=== PATIENT | female | born 1985 | race Two or more races ===

== ENCOUNTER 2017-12-10 20:43 | Inpatient (IN) | payer MEDICAID, OTHER ==
[~2017-12-10] VITALS: Ht 180.3 cm; Wt 81.6 kg
[~2017-12-10 20:43] MED LIST: AMLO-511 PO; ARIP10TA8 PO; CIPR250S4 PO
[2017-12-10 21:33] LABS: BASOPHILS % (AUTO) 0.4 % (0.0-2.0); EOSINOPHILS % (AUTO) 0.1 % (1.0-6.0); HEMATOCRIT 36.6 % (36-46); HEMOGLOBIN 12.7 g/dL (12.0-16.0); LYMPHOCYTES # (AUTO) 1.5 K/uL (1.0-4.8); LYMPHOCYTES % (AUTO) 12.5 % (22.0-44.0); MEAN CORPUSCULAR HEMOGLOBIN 30.3 pg (26.0-34.0); MEAN CORPUSCULAR HGB CONC 34.6 G/dL (31.0-37.0); MEAN CORPUSCULAR VOLUME 88 fL (80-100); MONOCYTES % (AUTO) 8.8 % (2.0-9.0); NEUTROPHILS # (AUTO) 9.2 K/uL (1.8-7.7); NEUTROPHILS % (AUTO) 78.2 % (40.0-70.0); PLATELET COUNT (AUTO) 254 K/uL (150-450); RED BLOOD CELL COUNT(AUTO) 4.17 MIL/uL (4.00-5.20); RED CELL DISTRIBUTION WIDTH 13.5 % (11.5-14.5)
[2017-12-10 21:48] LABS: ANION GAP 12 mmol/L (8-16); CALCIUM, TOTAL 9.2 mg/dL (8.8-10.5); CARBON DIOXIDE 23 mmol/L (22-29); CHLORIDE 100 mmol/L (98-107); CREATININE 0.81 mg/dL (0.60-1.30); GLOMERULAR FILTR. RATE CALC > 60 mL/min (>60); GLUCOSE,RANDOM 136 mg/dL (70-110); SODIUM SERUM 135 mmol/L (136-145); UREA NITROGEN, BLOOD 16 mg/dL (7-18)
[2017-12-10 21:55] LABS: ALANINE AMINOTRANSFERASE 35 U/L (12-78); ALKALINE PHOSPHATASE 90 U/L (46-116); ASPARTATE AMINOTRANSFERASE 52 U/L (15-37); BILIRUBIN,TOTAL 2.1 mg/dL (0.1-1.0); TOTAL PROTEIN, SERUM 7.5 g/dL (6.4-8.2)
[2017-12-10] MEDS ORDERED: HALOPERIDOL 5 MG TABLET PO ONE (22:15)
[2017-12-10] MEDS ORDERED: DiphenhydrAMINE HCL 25 MG CAPSULE PO ONE (22:15)
[2017-12-10] MEDS ORDERED: LORazepam 2 MG TABLET PO ONE (22:15)
[2017-12-10] MEDS ORDERED: HALOPERIDOL LACTATE 5 MG/ML VIAL IM ONE (22:45)
[2017-12-10] MEDS ORDERED: DiphenhydrAMINE HCL 50 MG/ML VIAL IM ONE (22:45)
[2017-12-10] MEDS ORDERED: LORazepam 2 MG/ML VIAL IM ONE (22:45)
[2017-12-11] MEDS ORDERED: HALOPERIDOL 5 MG TABLET PO PRN (06:45)
[2017-12-11] MEDS ORDERED: ZOLPIDEM TARTRATE 10 MG TABLET PO PRN (06:45)
[2017-12-11] MEDS ORDERED: ARIPiprazole 10 MG TABLET PO ONE (12:45)
[2017-12-11 13:07] VITALS: BP 122/82
[2017-12-11 13:58] LABS: GLUCOMETER DEV NAME(LOC) BV3S 2; GLUCOSE,POINT OF CARE 79 MG/DL (70-110)
[2017-12-11] MEDS ORDERED: POTASSIUM CHLORIDE 20 MEQ ER TABLET PO ONE (14:30)
[2017-12-11] MEDS ORDERED: CloNIDine HCL 0.1 MG TABLET PO PRN (15:00)
[2017-12-11] MEDS ORDERED: IBUPROFEN 400 MG TABLET PO PRN (15:00)
[2017-12-11] MEDS ORDERED: LOPERAMIDE HCL 2 MG CAPSULE PO PRN (15:00)
[2017-12-11] MEDS ORDERED: ONDANSETRON HCL 4 MG TABLET PO PRN (15:00)
[2017-12-11] MEDS ORDERED: MAG HYDROX/AL HYDROX/SIMETH ES 30 ML SUSPENSION UDCUP PO PRN (15:00)
[2017-12-11] MEDS ORDERED: ACETAMINOPHEN 325 MG TABLET PO PRN (15:00)
[2017-12-11] MEDS ORDERED: DOCUSATE SODIUM 100 MG CAPSULE PO PRN (15:00)
[2017-12-11] MEDS ORDERED: ALBUTEROL SULFATE HFA 90 MCG/PUFF 8 GM INHALER IH PRN (15:00)
[2017-12-11] MEDS ORDERED: MAGNESIUM HYDROXIDE SUSPENSION 30 ML UDCUP PO PRN (15:00)
[2017-12-11] MEDS ORDERED: PETROLATUM,WHITE 71 GM JELLY TP PRN (15:00)
[2017-12-11 16:00] VITALS: BP 115/69
[2017-12-12 03:27] VITALS: BP 120/76
[2017-12-12 08:33] VITALS: BP 101/51
[2017-12-12] MEDS ORDERED: ARIPiprazole 10 MG TABLET PO SCH (09:00)
[2017-12-12] MEDS: NICOTINE 14 MG/24 HOUR PATCH TD SCH (09:49)
[2017-12-12 16:12] VITALS: BP 117/65
[2017-12-13 02:00] VITALS: BP 124/67
[2017-12-13 08:42] VITALS: BP 101/53
[2017-12-13] MEDS: AmLODIPine BESYLATE 5 MG TABLET PO SCH (08:59)
[2017-12-13] MEDS: ARIPiprazole 15 MG TABLET PO SCH (08:59)
[2017-12-13] MEDS: NICOTINE 14 MG/24 HOUR PATCH TD SCH (08:59)
[2017-12-13] MEDS ORDERED: ARIPiprazole LAUROXIL ER SUSPENSION 662 MG/2.4 ML SYRINGE IM SCH (09:00)
[2017-12-13 18:40] VITALS: BP 117/64
[2017-12-14 07:19] LABS: BASOPHILS % (AUTO) 0.2 % (0.0-2.0); HEMATOCRIT 39.1 % (36-46); HEMOGLOBIN 13.4 g/dL (12.0-16.0); LYMPHOCYTES # (AUTO) 1.5 K/uL (1.0-4.8); LYMPHOCYTES % (AUTO) 13.8 % (22.0-44.0); MEAN CORPUSCULAR HEMOGLOBIN 30.7 pg (26.0-34.0); MEAN CORPUSCULAR HGB CONC 34.3 G/dL (31.0-37.0); MEAN CORPUSCULAR VOLUME 89 fL (80-100); MONOCYTES # (AUTO) 0.8 K/uL (0.1-1.0); MONOCYTES % (AUTO) 7.4 % (2.0-9.0); NEUTROPHILS # (AUTO) 8.4 K/uL (1.8-7.7); NEUTROPHILS % (AUTO) 77.6 % (40.0-70.0); PLATELET COUNT (AUTO) 263 K/uL (150-450); RED BLOOD CELL COUNT(AUTO) 4.37 MIL/uL (4.00-5.20); RED CELL DISTRIBUTION WIDTH 14.1 % (11.5-14.5)
[2017-12-14 07:39] LABS: CHOL/HDL RATIO 3.5 (3.9-5.7); POTASSIUM 4.2 mmol/L (3.5-5.1); THYROID STIMULATING HORMONE 0.17 uIU/mL (0.36-3.74)
[2017-12-14 07:45] LABS: HEMOGLOBIN A1C 5.1 % (4.5-6.2)
[2017-12-14] MEDS: ARIPiprazole 15 MG TABLET PO SCH (08:22)
[2017-12-14] MEDS: AmLODIPine BESYLATE 5 MG TABLET PO SCH (08:22)
[2017-12-14] MEDS: NICOTINE 14 MG/24 HOUR PATCH TD SCH (08:22)
[2017-12-14 08:24] VITALS: BP 130/58
[2017-12-14] MEDS ORDERED: ARIPiprazole LAUROXIL ER SUSPENSION 662 MG/2.4 ML SYRINGE IM SCH (09:00)
[2017-12-14 17:52] VITALS: BP 126/69
[2017-12-15] MEDS: LORazepam 2 MG TABLET PO PRN ×2 (02:53→17:08)
[2017-12-15 05:34] VITALS: BP 126/70
[2017-12-15 08:44] VITALS: BP 116/58
[2017-12-15] MEDS: NICOTINE 14 MG/24 HOUR PATCH TD SCH ×2 (09:00→13:13)
[2017-12-15] MEDS: ARIPiprazole 15 MG TABLET PO SCH (09:45)
[2017-12-15] MEDS: AmLODIPine BESYLATE 5 MG TABLET PO SCH (09:45)
[2017-12-15 16:12] VITALS: BP 119/68
[2017-12-16 06:40] VITALS: BP 110/62
[2017-12-16 08:32] VITALS: BP 126/67
[2017-12-16] MEDS: AmLODIPine BESYLATE 5 MG TABLET PO SCH (08:51)
[2017-12-16] MEDS: ARIPiprazole 15 MG TABLET PO SCH (08:51)
[2017-12-16] MEDS ORDERED: ARIP662S IM (12:14)
== END 2017-12-16 15:00 | disposition home or self-care (01) | DRG 751 ==
LOC: EMS 20:44 → B3A 12-11 11:58
PROVIDERS: ADMIT Psychiatry & Neurology Psychiatry; ATTEND Psychiatry & Neurology Psychiatry
DX: F28 Other psychotic disorder not due to a substance or known physiological condition (principal); Z78.1 Physical restraint status; I10 Essential (primary) hypertension; F15.20 Other stimulant dependence, uncomplicated; E11.9 Type 2 diabetes mellitus without complications; D72.829 Elevated white blood cell count, unspecified; E87.6 Hypokalemia; Z71.51 Drug abuse counseling and surveillance of drug abuser; F41.9 Anxiety disorder, unspecified; F12.90 Cannabis use, unspecified, uncomplicated; R74.0 Nonspecific elevation of levels of transaminase and lactic acid dehydrogenase [LDH]; F17.210 Nicotine dependence, cigarettes, uncomplicated; Z91.19 Patient's noncompliance with other medical treatment and regimen; Z59.0 Homelessness; Z79.899 Other long term (current) drug therapy; F19.20 Other psychoactive substance dependence, uncomplicated; Z87.440 Personal history of urinary (tract) infections
CPT/HCPCS: 83036; 84132; 84443; 87081; 96372; 99285; G0480; J1200; J1630; J2060

== ENCOUNTER 2018-07-15 17:13 | Emergency (ER) | payer MEDICAID, OTHER ==
[~2018-07-15] VITALS: Ht 180.3 cm; Wt 86.4 kg
[~2018-07-15 17:13] MED LIST changes: -AMLO-511 PO; -ARIP10TA8 PO; +ARIP15TA2 PO; -CIPR250S4 PO
[2018-07-15 19:07] LABS: HEMATOCRIT 35.8 % (36-46); MEAN CORPUSCULAR HEMOGLOBIN 29.2 pg (26.0-34.0); MEAN CORPUSCULAR HGB CONC 33.4 G/dL (31.0-37.0); MEAN CORPUSCULAR VOLUME 88 fL (80-100); PLATELET COUNT (AUTO) 282 K/uL (150-450); RED CELL DISTRIBUTION WIDTH 14.4 % (11.5-14.5)
[2018-07-15 19:35] LABS: ANION GAP 9 mmol/L (8-16); CALCIUM, TOTAL 8.9 mg/dL (8.8-10.5); CARBON DIOXIDE 26 mmol/L (22-29); CHLORIDE 99 mmol/L (98-107); CREATININE 0.78 mg/dL (0.60-1.30); GLOMERULAR FILTR. RATE CALC > 60 mL/min (>60); GLUCOSE,RANDOM 114 mg/dL (70-110); POTASSIUM 3.6 mmol/L (3.5-5.1); SODIUM SERUM 134 mmol/L (136-145); UREA NITROGEN, BLOOD 11 mg/dL (7-18)
[2018-07-15 19:42] LABS: ALANINE AMINOTRANSFERASE 33 U/L (12-78); ALBUMIN 3.6 g/dL (3.4-5.0); ALKALINE PHOSPHATASE 103 U/L (46-116); ASPARTATE AMINOTRANSFERASE 46 U/L (15-37); BILIRUBIN,TOTAL 2.8 mg/dL (0.1-1.0); TOTAL PROTEIN, SERUM 7.7 g/dL (6.4-8.2)
[2018-07-15] MEDS ORDERED: SODIUM CHLORIDE 0.9% 1,000 ML IV ONE (20:15)
[2018-07-15 20:23] LABS: BAND NEUTROPHILS % (MANUAL) 3 % (0-5); LYMPHOCYTES % (MANUAL) 9 % (22-44); MONOCYTES % (MANUAL) 4 % (2-9); SEGMENTED NEUTROPHILS % 84 % (40-70)
[2018-07-15 20:28] LABS: HCG,QUANTITATIVE < 1 mIU/mL (0-6)
[2018-07-16 01:21] LABS: APPEARANCE,URINE TURBID (CLEAR); BILIRUBIN,URINE NEGATIVE (NEGATIVE); GLUCOSE, URINE (UA) NEGATIVE (NEGATIVE); KETONES,URINE 15 mg/dL (NEGATIVE); LEUKOCYTE ESTERASE ,URINE NEGATIVE (NEGATIVE); NITRATE,URINE NEGATIVE (NEGATIVE); OCCULT BLOOD,URINE NEGATIVE (NEGATIVE); PROTEIN,URINE NEGATIVE (NEGATIVE)
[2018-07-16 01:25] LABS: AMPHET/METH SCREEN,URINE POSITIVE (NEGATIVE); BARBITURATE SCREEN, URINE NEGATIVE (NEGATIVE); BENZODIAZEPINES SCREEN,URINE NEGATIVE (NEGATIVE); CANNABINOID SCREEN,URINE POSITIVE (NEGATIVE); COCAINE SCREEN,URINE NEGATIVE (NEGATIVE); METHADONE SCREEN, URINE NEGATIVE (NEGATIVE); OPIATE SCREEN,URINE NEGATIVE (NEGATIVE)
[2018-07-16 01:26] LABS: PHENCYCLIDINE SCREEN,URINE NEGATIVE (NEGATIVE)
[2018-07-16] MEDS ORDERED: KETOROLAC TROMETHAMINE 60 MG/2 ML VIAL IM ONE (05:00)
[2018-07-16] MEDS ORDERED: KETOROLAC TROMETHAMINE 30 MG/ML VIAL IVP ONE (05:30)
[2018-07-16] MEDS ORDERED: CeFAZolin 1 GM/DEXTROSE 50 ML IV ONE (05:30)
[2018-07-16 06:10] VITALS: BP 113/56
== END 2018-07-16 06:46 | disposition home or self-care (01) ==
LOC: EMS 17:14
DX: S52.002A Unspecified fracture of upper end of left ulna, initial encounter for closed fracture (principal); F29 Unspecified psychosis not due to a substance or known physiological condition; L03.114 Cellulitis of left upper limb; F31.9 Bipolar disorder, unspecified; F20.9 Schizophrenia, unspecified; E11.9 Type 2 diabetes mellitus without complications; F15.90 Other stimulant use, unspecified, uncomplicated; F17.210 Nicotine dependence, cigarettes, uncomplicated; Z79.899 Other long term (current) drug therapy; X58.XXXA Exposure to other specified factors, initial encounter; Y93.89 Activity, other specified; Y92.89 Other specified places as the place of occurrence of the external cause; Y99.8 Other external cause status
CPT/HCPCS: 29105; 36415; 73080; 80053; 80307; 81003; 84702; 85025; 96365; 96375; 99285; G0480; J0690; J1885; J7030

== ENCOUNTER 2018-10-06 11:06 | Inpatient (IN) | payer MEDICAID, OTHER ==
[~2018-10-06] VITALS: Ht 177.8 cm; Wt 186.2 kg
[2018-10-06 12:03] LABS: BASOPHILS % (AUTO) 0.4 % (0.0-2.0); EOSINOPHILS % (AUTO) 0.4 % (1.0-6.0); HEMATOCRIT 36.7 % (36-46); HEMOGLOBIN 11.9 g/dL (12.0-16.0); LYMPHOCYTES # (AUTO) 1.7 K/uL (1.0-4.8); LYMPHOCYTES % (AUTO) 19.2 % (22.0-44.0); MEAN CORPUSCULAR HEMOGLOBIN 27.9 pg (26.0-34.0); MEAN CORPUSCULAR HGB CONC 32.5 G/dL (31.0-37.0); MEAN CORPUSCULAR VOLUME 86 fL (80-100); MONOCYTES # (AUTO) 0.8 K/uL (0.1-1.0); MONOCYTES % (AUTO) 9.3 % (2.0-9.0); NEUTROPHILS # (AUTO) 6.1 K/uL (1.8-7.7); NEUTROPHILS % (AUTO) 70.7 % (40.0-70.0); PLATELET COUNT (AUTO) 304 K/uL (150-450); RED BLOOD CELL COUNT(AUTO) 4.29 MIL/uL (4.00-5.20); RED CELL DISTRIBUTION WIDTH 15.8 % (11.5-14.5)
[2018-10-06 12:11] LABS: AMPHET/METH SCREEN,URINE POSITIVE (NEGATIVE); BARBITURATE SCREEN, URINE NEGATIVE (NEGATIVE); BENZODIAZEPINES SCREEN,URINE NEGATIVE (NEGATIVE); CANNABINOID SCREEN,URINE POSITIVE (NEGATIVE); COCAINE SCREEN,URINE NEGATIVE (NEGATIVE); METHADONE SCREEN, URINE NEGATIVE (NEGATIVE); OPIATE SCREEN,URINE NEGATIVE (NEGATIVE)
[2018-10-06 12:13] LABS: ANION GAP 9 mmol/L (8-16); CARBON DIOXIDE 26 mmol/L (22-29); CHLORIDE 101 mmol/L (98-107); CREATININE 0.66 mg/dL (0.60-1.30); GLOMERULAR FILTR. RATE CALC > 60 mL/min (>60); GLUCOSE,RANDOM 112 mg/dL (70-110); POTASSIUM 3.4 mmol/L (3.5-5.1); SODIUM SERUM 136 mmol/L (136-145); UREA NITROGEN, BLOOD 11 mg/dL (7-18)
[2018-10-06 12:16] LABS: PHENCYCLIDINE SCREEN,URINE NEGATIVE (NEGATIVE)
[2018-10-06 12:25] LABS: ALANINE AMINOTRANSFERASE 24 U/L (12-78); ALBUMIN 3.9 g/dL (3.4-5.0); ALKALINE PHOSPHATASE 97 U/L (46-116); ASPARTATE AMINOTRANSFERASE 31 U/L (15-37); BILIRUBIN,TOTAL 1.1 mg/dL (0.1-1.0); HCG,QUANTITATIVE < 1 mIU/mL (0-6); TOTAL PROTEIN, SERUM 7.9 g/dL (6.4-8.2)
[2018-10-06] MEDS ORDERED: LORazepam 2 MG TABLET PO ONE (13:00)
[2018-10-06] MEDS ORDERED: OLANZapine 5 MG TABLET PO ONE (13:00)
[2018-10-06] MEDS ORDERED: POTASSIUM CHLORIDE 20 MEQ ER TABLET PO ONE (13:15)
[2018-10-06] MEDS ORDERED: SULFAMETHOX/TRIMETH DS 800-160 MG/TABLET PO ONE (14:00)
[2018-10-06] MEDS ORDERED: CEPHALEXIN MONOHYDRATE 500 MG CAPSULE PO ONE (14:00)
[2018-10-06] MEDS ORDERED: HALOPERIDOL LACTATE 5 MG/ML VIAL IM ONE (14:45)
[2018-10-06] MEDS ORDERED: DiphenhydrAMINE HCL 50 MG/ML VIAL IM ONE (14:45)
[2018-10-06 19:15] LABS: GLUCOSE,POINT OF CARE 85 MG/DL (70-110)
[2018-10-06] MEDS ORDERED: CloNIDine HCL 0.1 MG TABLET PO PRN (19:45)
[2018-10-06] MEDS ORDERED: DOCUSATE SODIUM 100 MG CAPSULE PO PRN (19:45)
[2018-10-06] MEDS ORDERED: ACETAMINOPHEN 325 MG TABLET PO PRN (19:45)
[2018-10-06] MEDS ORDERED: MAGNESIUM HYDROXIDE SUSPENSION 30 ML UDCUP PO PRN (19:45)
[2018-10-06] MEDS ORDERED: ONDANSETRON HCL 4 MG TABLET PO PRN (19:45)
[2018-10-06] MEDS ORDERED: NICOTINE 14 MG/24 HOUR PATCH TD PRN (19:45)
[2018-10-06] MEDS ORDERED: LOPERAMIDE HCL 2 MG CAPSULE PO PRN (19:45)
[2018-10-06] MEDS ORDERED: ALBUTEROL SULFATE HFA 90 MCG/PUFF 8 GM INHALER IH PRN (19:45)
[2018-10-06] MEDS ORDERED: MAG HYDROX/AL HYDROX/SIMETH ES 30 ML SUSPENSION UDCUP PO PRN (19:45)
[2018-10-06] MEDS ORDERED: GuaiFENesin/D-METHORPHAN [SUGAR-FREE] 200-20MG/10 ML SYRUP UDCUP PO PRN (19:45)
[2018-10-06] MEDS ORDERED: PETROLATUM,WHITE 28 GM JELLY TP PRN (19:45)
[2018-10-06] MEDS ORDERED: PNEUMOCOCCAL VACCINE POLYVALENT 0.5 ML VIAL [PPSV23] IM ONE (20:00)
[2018-10-07 06:30] LABS: GLUCOMETER DEV NAME(LOC) 3E.C; GLUCOSE,POINT OF CARE 88 MG/DL (70-110)
[2018-10-07 06:35] LABS: BASOPHILS % (AUTO) 0.4 % (0.0-2.0); EOSINOPHILS % (AUTO) 2.3 % (1.0-6.0); HEMATOCRIT 36.4 % (36-46); HEMOGLOBIN 11.9 g/dL (12.0-16.0); LYMPHOCYTES # (AUTO) 1.7 K/uL (1.0-4.8); LYMPHOCYTES % (AUTO) 31.2 % (22.0-44.0); MEAN CORPUSCULAR HGB CONC 32.8 G/dL (31.0-37.0); MEAN CORPUSCULAR VOLUME 85 fL (80-100); MONOCYTES # (AUTO) 0.6 K/uL (0.1-1.0); NEUTROPHILS # (AUTO) 3.1 K/uL (1.8-7.7); NEUTROPHILS % (AUTO) 55.1 % (40.0-70.0); PLATELET COUNT (AUTO) 287 K/uL (150-450); RED BLOOD CELL COUNT(AUTO) 4.26 MIL/uL (4.00-5.20); RED CELL DISTRIBUTION WIDTH 16.1 % (11.5-14.5)
[2018-10-07 07:14] LABS: ALANINE AMINOTRANSFERASE 22 U/L (12-78); ALBUMIN 3.3 g/dL (3.4-5.0); ALKALINE PHOSPHATASE 95 U/L (46-116); ANION GAP 10 mmol/L (8-16); ASPARTATE AMINOTRANSFERASE 30 U/L (15-37); BILIRUBIN,TOTAL 1.7 mg/dL (0.1-1.0); CALCIUM, TOTAL 8.8 mg/dL (8.8-10.5); CARBON DIOXIDE 26 mmol/L (22-29); CHLORIDE 106 mmol/L (98-107); CHOLESTEROL 151 mg/dL (131-200); CREATININE 0.61 mg/dL (0.60-1.30); GLOMERULAR FILTR. RATE CALC > 60 mL/min (>60); GLUCOSE,RANDOM 96 mg/dL (70-110); HDL CHOLESTEROL 75 mg/dL (40-60); LDL CHOL (CALC.) 69 mg/dL (0-130); POTASSIUM 4.3 mmol/L (3.5-5.1); SODIUM SERUM 142 mmol/L (136-145); THYROID STIMULATING HORMONE 0.68 uIU/mL (0.36-3.74); TOTAL PROTEIN, SERUM 6.8 g/dL (6.4-8.2); TRIGLYCERIDES 37 mg/dL (15-150); UREA NITROGEN, BLOOD 10 mg/dL (7-18)
[2018-10-07 08:00] VITALS: BP 115/65
[2018-10-07] MEDS: OLANZapine 5 MG RAPDIS TABLET PO PRN (09:14)
[2018-10-07] MEDS: LORazepam 2 MG TABLET PO PRN (09:14)
[2018-10-07] MEDS: CEPHALEXIN MONOHYDRATE 500 MG CAPSULE PO SCH ×2 (09:15→17:32)
[2018-10-07] MEDS: SULFAMETHOX/TRIMETH DS 800-160 MG/TABLET PO SCH ×2 (09:15→17:32)
[2018-10-07 11:50] LABS: GLUCOMETER DEV NAME(LOC) 3E.C; GLUCOSE,POINT OF CARE 90 MG/DL (70-110)
[2018-10-07] MEDS: IBUPROFEN 400 MG TABLET PO PRN (15:11)
[2018-10-07] MEDS: MULTIVITAMINS WITH MINERALS, THERAPEUTIC TABLET PO SCH (17:32)
[2018-10-07] MEDS: ASCORBIC ACID 500 MG TABLET PO SCH (17:32)
[2018-10-07] MEDS: QUEtiapine FUMARATE 100 MG TABLET PO SCH (20:58)
[2018-10-07 21:09] LABS: GLUCOMETER DEV NAME(LOC) 3E.C; GLUCOSE,POINT OF CARE 74 MG/DL (70-110)
[2018-10-08 06:44] LABS: GLUCOMETER DEV NAME(LOC) 3E.C; GLUCOSE,POINT OF CARE 92 MG/DL (70-110)
[2018-10-08 09:11] VITALS: BP 108/60
[2018-10-08] MEDS: CEPHALEXIN MONOHYDRATE 500 MG CAPSULE PO SCH ×2 (09:42→16:47)
[2018-10-08] MEDS: ASCORBIC ACID 500 MG TABLET PO SCH (09:42)
[2018-10-08] MEDS: MULTIVITAMINS WITH MINERALS, THERAPEUTIC TABLET PO SCH (09:42)
[2018-10-08] MEDS: SULFAMETHOX/TRIMETH DS 800-160 MG/TABLET PO SCH ×2 (09:42→16:48)
[2018-10-08 11:25] LABS: GLUCOMETER DEV NAME(LOC) 3E.C; GLUCOSE,POINT OF CARE 88 MG/DL (70-110)
[2018-10-08 13:08] VITALS: BP 108/60
[2018-10-08] MEDS: IBUPROFEN 400 MG TABLET PO PRN (13:08)
[2018-10-08] MEDS: OLANZapine 5 MG RAPDIS TABLET PO PRN (13:08)
[2018-10-08] MEDS: LORazepam 2 MG TABLET PO PRN (13:08)
[2018-10-08 17:24] LABS: GLUCOMETER DEV NAME(LOC) 3E.C; GLUCOSE,POINT OF CARE 97 MG/DL (70-110)
[2018-10-08 19:40] VITALS: BP 111/62
[2018-10-08] MEDS: QUEtiapine FUMARATE 100 MG TABLET PO SCH (20:44)
[2018-10-08 20:59] LABS: GLUCOMETER DEV NAME(LOC) 3E.C; GLUCOSE,POINT OF CARE 133 MG/DL (70-110)
[2018-10-09] MEDS: LORazepam 2 MG TABLET PO PRN ×2 (01:56→12:01)
[2018-10-09] MEDS: ZOLPIDEM TARTRATE 10 MG TABLET PO PRN (01:57)
[2018-10-09 06:19] LABS: GLUCOMETER DEV NAME(LOC) 3E.C; GLUCOSE,POINT OF CARE 87 MG/DL (70-110)
[2018-10-09 08:36] VITALS: BP 108/60
[2018-10-09] MEDS: SULFAMETHOX/TRIMETH DS 800-160 MG/TABLET PO SCH ×2 (08:44→16:36)
[2018-10-09] MEDS: CEPHALEXIN MONOHYDRATE 500 MG CAPSULE PO SCH ×2 (08:44→16:36)
[2018-10-09] MEDS: ASCORBIC ACID 500 MG TABLET PO SCH (08:44)
[2018-10-09] MEDS: MULTIVITAMINS WITH MINERALS, THERAPEUTIC TABLET PO SCH (08:44)
[2018-10-09] MEDS: OLANZapine 5 MG RAPDIS TABLET PO PRN (12:01)
[2018-10-09 17:03] VITALS: BP 122/65
[2018-10-09 17:09] LABS: GLUCOMETER DEV NAME(LOC) 3E.C; GLUCOSE,POINT OF CARE 96 MG/DL (70-110)
[2018-10-09] MEDS: QUEtiapine FUMARATE 200 MG TABLET PO SCH (20:35)
[2018-10-09 20:49] LABS: GLUCOMETER DEV NAME(LOC) 3E.C; GLUCOSE,POINT OF CARE 99 MG/DL (70-110)
[2018-10-10] MEDS: MULTIVITAMINS WITH MINERALS, THERAPEUTIC TABLET PO SCH (08:21)
[2018-10-10] MEDS: SULFAMETHOX/TRIMETH DS 800-160 MG/TABLET PO SCH ×2 (08:21→16:23)
[2018-10-10] MEDS: CEPHALEXIN MONOHYDRATE 500 MG CAPSULE PO SCH ×2 (08:21→16:23)
[2018-10-10] MEDS: ASCORBIC ACID 500 MG TABLET PO SCH (08:21)
[2018-10-10] MEDS: LORazepam 2 MG TABLET PO PRN ×2 (08:21→16:43)
[2018-10-10 09:13] VITALS: BP 138/73
[2018-10-10 11:30] LABS: GLUCOMETER DEV NAME(LOC) 3E.C; GLUCOSE,POINT OF CARE 118 MG/DL (70-110)
[2018-10-10 16:54] LABS: GLUCOMETER DEV NAME(LOC) 3E.C; GLUCOSE,POINT OF CARE 70 MG/DL (70-110)
[2018-10-10 18:04] VITALS: BP 126/70
[2018-10-10] MEDS: QUEtiapine FUMARATE 200 MG TABLET PO SCH (20:08)
[2018-10-10 21:35] LABS: GLUCOMETER DEV NAME(LOC) 3E.C; GLUCOSE,POINT OF CARE 98 MG/DL (70-110)
[2018-10-11 06:24] LABS: GLUCOMETER DEV NAME(LOC) 3E.C; GLUCOSE,POINT OF CARE 99 MG/DL (70-110)
[2018-10-11] MEDS: CEPHALEXIN MONOHYDRATE 500 MG CAPSULE PO SCH ×2 (08:17→16:10)
[2018-10-11] MEDS: ASCORBIC ACID 500 MG TABLET PO SCH (08:17)
[2018-10-11] MEDS: LORazepam 2 MG TABLET PO PRN ×2 (08:17→18:22)
[2018-10-11] MEDS: MULTIVITAMINS WITH MINERALS, THERAPEUTIC TABLET PO SCH (08:17)
[2018-10-11] MEDS: SULFAMETHOX/TRIMETH DS 800-160 MG/TABLET PO SCH ×2 (08:17→16:10)
[2018-10-11] MEDS: CHLORHEXIDINE GLUCONATE 4% 118 ML TOPICAL LIQUID TP SCH (08:18)
[2018-10-11 09:03] VITALS: BP 99/46
[2018-10-11 11:09] LABS: GLUCOMETER DEV NAME(LOC) 3E.C; GLUCOSE,POINT OF CARE 82 MG/DL (70-110)
[2018-10-11 18:57] VITALS: BP 112/54
[2018-10-11] MEDS: QUEtiapine FUMARATE 200 MG TABLET PO SCH (20:10)
[2018-10-11 20:29] LABS: GLUCOMETER DEV NAME(LOC) 3E.C; GLUCOSE,POINT OF CARE 114 MG/DL (70-110)
[2018-10-12 05:49] LABS: GLUCOMETER DEV NAME(LOC) 3E.C; GLUCOSE,POINT OF CARE 93 MG/DL (70-110)
[2018-10-12 08:47] VITALS: BP 121/94
[2018-10-12] MEDS: ASCORBIC ACID 500 MG TABLET PO SCH (08:59)
[2018-10-12] MEDS: MULTIVITAMINS WITH MINERALS, THERAPEUTIC TABLET PO SCH (08:59)
[2018-10-12] MEDS: SULFAMETHOX/TRIMETH DS 800-160 MG/TABLET PO SCH ×2 (08:59→16:32)
[2018-10-12] MEDS: CEPHALEXIN MONOHYDRATE 500 MG CAPSULE PO SCH ×2 (08:59→16:32)
[2018-10-12] MEDS: CHLORHEXIDINE GLUCONATE 4% 118 ML TOPICAL LIQUID TP SCH (09:00)
[2018-10-12] MEDS: LORazepam 2 MG TABLET PO PRN ×2 (09:00→14:11)
[2018-10-12] MEDS: OLANZapine 5 MG RAPDIS TABLET PO PRN (16:33)
[2018-10-12 16:45] LABS: GLUCOMETER DEV NAME(LOC) 3E.C; GLUCOSE,POINT OF CARE 83 MG/DL (70-110)
[2018-10-12] MEDS: QUEtiapine FUMARATE 200 MG TABLET PO SCH (20:24)
[2018-10-12] MEDS: ZOLPIDEM TARTRATE 10 MG TABLET PO PRN (20:24)
[2018-10-12 21:25] VITALS: BP 114/92
[2018-10-13 06:35] LABS: GLUCOMETER DEV NAME(LOC) 3E.C; GLUCOSE,POINT OF CARE 95 MG/DL (70-110)
[2018-10-13] MEDS: CEPHALEXIN MONOHYDRATE 500 MG CAPSULE PO SCH ×2 (09:43→16:20)
[2018-10-13] MEDS: OLANZapine 5 MG RAPDIS TABLET PO PRN (09:43)
[2018-10-13] MEDS: SULFAMETHOX/TRIMETH DS 800-160 MG/TABLET PO SCH ×2 (09:43→16:19)
[2018-10-13] MEDS: ASCORBIC ACID 500 MG TABLET PO SCH (09:43)
[2018-10-13] MEDS: MULTIVITAMINS WITH MINERALS, THERAPEUTIC TABLET PO SCH (09:43)
[2018-10-13] MEDS: CHLORHEXIDINE GLUCONATE 4% 118 ML TOPICAL LIQUID TP SCH (09:44)
[2018-10-13 10:03] VITALS: BP 113/76
[2018-10-13 11:55] LABS: GLUCOMETER DEV NAME(LOC) 3E.C; GLUCOSE,POINT OF CARE 90 MG/DL (70-110)
[2018-10-13] MEDS ORDERED: ASCO500 PO (14:15)
[2018-10-13] MEDS ORDERED: CEPH500 PO (14:16)
[2018-10-13] MEDS ORDERED: CHLO240L TP (14:20)
[2018-10-13] MEDS ORDERED: MULT-1239 PO (14:20)
[2018-10-13] MEDS ORDERED: SULF1TAB42 PO (14:21)
[2018-10-13] MEDS ORDERED: QUET200T PO (14:32)
== END 2018-10-13 16:30 | disposition home or self-care (01) | DRG 750 ==
LOC: EMS 11:07 → 3EC 18:05
DX: F25.0 Schizoaffective disorder, bipolar type (principal); E43 Unspecified severe protein-calorie malnutrition; F10.231 Alcohol dependence with withdrawal delirium; E83.51 Hypocalcemia; L03.115 Cellulitis of right lower limb; F15.20 Other stimulant dependence, uncomplicated; E11.9 Type 2 diabetes mellitus without complications; E87.6 Hypokalemia; D64.9 Anemia, unspecified; F12.10 Cannabis abuse, uncomplicated; F14.10 Cocaine abuse, uncomplicated; I10 Essential (primary) hypertension; Z91.5 Personal history of self-harm; F17.210 Nicotine dependence, cigarettes, uncomplicated
CPT/HCPCS: 83036; 84443; 87081; 96372; G0480; J1200; J1630

== ENCOUNTER 2020-07-19 11:34 | Inpatient (IN) | payer MEDICAID, OTHER ==
[~2020-07-19] VITALS: Ht 180.3 cm; Wt 106.1 kg
[~2020-07-19 11:34] MED LIST changes: -ARIP15TA2 PO; +ASCO500 PO; +CEPH500C3 PO; +CHLO240L TP; +MULT-1239 PO; +QUET200T PO; +SULF1TAB42 PO
[2020-07-19] MEDS ORDERED: LORazepam 2 MG/ML VIAL IM ONE ×2 (11:45→18:30)
[2020-07-19] MEDS ORDERED: HALOPERIDOL LACTATE 5 MG/ML VIAL ONE (11:45)
[2020-07-19] MEDS ORDERED: DiphenhydrAMINE HCL 50 MG/ML VIAL IM ONE (11:45)
[2020-07-19] MEDS ORDERED: LORazepam 2 MG/ML VIAL ONE (11:45)
[2020-07-19] MEDS ORDERED: HALOPERIDOL LACTATE 5 MG/ML VIAL IM ONE (11:45)
[2020-07-19] MEDS ORDERED: DiphenhydrAMINE HCL 50 MG/ML VIAL ONE (11:45)
[2020-07-19 12:05] LABS: BASOPHILS % (AUTO) 0.2 % (0.0-2.0); EOSINOPHILS % (AUTO) 0.1 % (1.0-6.0); HEMATOCRIT 38.9 % (36-46); HEMOGLOBIN 12.6 g/dL (12.0-16.0); LYMPHOCYTES # (AUTO) 0.9 K/uL (1.0-4.8); MEAN CORPUSCULAR HEMOGLOBIN 28.6 pg (26.0-34.0); MEAN CORPUSCULAR HGB CONC 32.3 G/dL (31.0-37.0); MEAN CORPUSCULAR VOLUME 88 fL (80-100); MONOCYTES # (AUTO) 0.9 K/uL (0.1-1.0); MONOCYTES % (AUTO) 5.2 % (2.0-9.0); NEUTROPHILS # (AUTO) 15.5 K/uL (1.8-7.7); PLATELET COUNT (AUTO) 344 K/uL (150-450); RED CELL DISTRIBUTION WIDTH 15.7 % (11.5-14.5)
[2020-07-19 12:30] LABS: NEUTROPHILS % (AUTO) 89.5 % (40.0-70.0)
[2020-07-19] MEDS ORDERED: SODIUM CHLORIDE 0.9% 2,000 ML IV ONE (12:30)
[2020-07-19 12:36] LABS: ANION GAP 19 mmol/L (8-16); CALCIUM, TOTAL 9.2 mg/dL (8.8-10.5); CARBON DIOXIDE 21 mmol/L (22-29); CHLORIDE 100 mmol/L (98-107); CREATININE 1.29 mg/dL (0.60-1.30); GLOMERULAR FILTR. RATE CALC 48 mL/min (>60); GLUCOSE,RANDOM 214 mg/dL (70-110); POTASSIUM 3.5 mmol/L (3.5-5.1); SODIUM SERUM 140 mmol/L (136-145); UREA NITROGEN, BLOOD 11 mg/dL (7-18)
[2020-07-19 12:42] LABS: ALANINE AMINOTRANSFERASE 19 U/L (12-78); ALBUMIN 4.7 g/dL (3.4-5.0); ALKALINE PHOSPHATASE 87 U/L (46-116); ASPARTATE AMINOTRANSFERASE 16 U/L (15-37); TOTAL PROTEIN, SERUM 8.9 g/dL (6.4-8.2)
[2020-07-19] MEDS ORDERED: LORazepam 2 MG/ML VIAL IVP ONE ×2 (12:45→18:30)
[2020-07-19 14:16] LABS: APPEARANCE,URINE CLOUDY (CLEAR); BILIRUBIN,URINE NEGATIVE (NEGATIVE); GLUCOSE, URINE (UA) 100 mg/dL (NEGATIVE); KETONES,URINE 15 mg/dL (NEGATIVE); LEUKOCYTE ESTERASE ,URINE NEGATIVE (NEGATIVE); NITRATE,URINE NEGATIVE (NEGATIVE); OCCULT BLOOD,URINE TRACE (NEGATIVE); PROTEIN,URINE SEE CONFIRM (NEGATIVE); UROBILINOGEN,URINE 0.2 mg/dL (<=1.0)
[2020-07-19 14:21] LABS: AMPHET/METH SCREEN,URINE POSITIVE (NEGATIVE); BARBITURATE SCREEN, URINE NEGATIVE (NEGATIVE); BENZODIAZEPINES SCREEN,URINE NEGATIVE (NEGATIVE); CANNABINOID SCREEN,URINE POSITIVE (NEGATIVE); COCAINE SCREEN,URINE NEGATIVE (NEGATIVE); METHADONE SCREEN, URINE NEGATIVE (NEGATIVE); OPIATE SCREEN,URINE NEGATIVE (NEGATIVE)
[2020-07-19 14:29] LABS: PHENCYCLIDINE SCREEN,URINE NEGATIVE (NEGATIVE)
[2020-07-19 14:32] LABS: SULFOSALICYLIC ACID,URINE 2+ (Negative)
[2020-07-19 14:33] LABS: BACTERIA,URINE Rare /HPF (None Seen)
[2020-07-19 14:34] LABS: SQUAMOUS EPITHELIAL CELL,UR Few /LPF (None Seen)
[2020-07-19] MEDS ORDERED: QUEtiapine FUMARATE 100 MG TABLET PO ONE (18:00)
[2020-07-19] MEDS ORDERED: SODIUM CHLORIDE 0.9% 1,000 ML IV ONE (18:30)
[2020-07-19] MEDS ORDERED: ZOLPIDEM TARTRATE 10 MG TABLET PO PRN (18:45)
[2020-07-19] MEDS ORDERED: HALOPERIDOL 5 MG TABLET PO PRN (18:45)
[2020-07-19 19:48] LABS: COVID AG,FIA SOURCE NASOPHARYNGEAL
[2020-07-19] MEDS: QUEtiapine FUMARATE 300 MG TABLET PO SCH (21:00)
[2020-07-20 00:57] VITALS: BP 148/93
[2020-07-20 01:25] VITALS: BP 127/85
[2020-07-20] MEDS ORDERED: INFLUENZA VIRUS VACCINE QVS 2020-21 (6MO+)/PF 60 MCG/0.5 ML SYRINGE IM ONE (02:30)
[2020-07-20] MEDS ORDERED: PNEUMOCOCCAL VACCINE POLYVALENT 0.5 ML VIAL [PPSV23] IM ONE (02:30)
[2020-07-20] MEDS ORDERED: MAG HYDROX/AL HYDROX/SIMETH ES 30 ML SUSPENSION UDCUP PO PRN (06:15)
[2020-07-20] MEDS ORDERED: BENZOCAINE/MENTHOL LOZENGE PO PRN (06:15)
[2020-07-20] MEDS ORDERED: PETROLATUM,WHITE 28 GM JELLY TP PRN (06:15)
[2020-07-20] MEDS ORDERED: ONDANSETRON HCL 4 MG TABLET PO PRN (06:15)
[2020-07-20] MEDS ORDERED: ACETAMINOPHEN 325 MG TABLET PO PRN (06:15)
[2020-07-20] MEDS ORDERED: LOPERAMIDE HCL 2 MG CAPSULE PO PRN (06:15)
[2020-07-20] MEDS ORDERED: DOCUSATE SODIUM 100 MG CAPSULE PO PRN (06:15)
[2020-07-20] MEDS ORDERED: IBUPROFEN 600 MG TABLET PO PRN (06:15)
[2020-07-20] MEDS ORDERED: BACITRACIN 28 GM OINTMENT TP PRN (06:15)
[2020-07-20] MEDS ORDERED: INSULIN LISPRO 100 UNITS/ML SQ PRN (06:15)
[2020-07-20] MEDS ORDERED: CloNIDine HCL 0.1 MG TABLET PO PRN (06:15)
[2020-07-20] MEDS ORDERED: OMEPRAZOLE 20 MG CAPSULE PO PRN (06:15)
[2020-07-20] MEDS ORDERED: ALBUTEROL SULFATE HFA 90 MCG/PUFF 8 GM INHALER IH PRN (06:15)
[2020-07-20] MEDS ORDERED: GLUCAGON,HUMAN RECOMBINANT 1 MG VIAL IM PRN (06:15)
[2020-07-20] MEDS ORDERED: MAGNESIUM HYDROXIDE SUSPENSION 30 ML UDCUP PO PRN (06:15)
[2020-07-20 07:04] LABS: GLUCOMETER DEV NAME(LOC) BV3S.; GLUCOSE,POINT OF CARE 124 MG/DL (70-110)
[2020-07-20 08:16] VITALS: BP 125/81
[2020-07-20 08:45] LABS: CHOL/HDL RATIO 3.5 (3.9-5.7)
[2020-07-20 11:58] LABS: GLUCOMETER DEV NAME(LOC) BV3S.; GLUCOSE,POINT OF CARE 101 MG/DL (70-110)
[2020-07-20] MEDS: LORazepam 2 MG TABLET PO PRN ×2 (12:10→16:58)
[2020-07-20 16:37] VITALS: BP 137/80
[2020-07-20] MEDS: QUEtiapine FUMARATE 300 MG TABLET PO SCH (20:18)
[2020-07-21 00:59] VITALS: BP 124/79
[2020-07-21 06:13] LABS: GLUCOMETER DEV NAME(LOC) BV3S.; GLUCOSE,POINT OF CARE 80 MG/DL (70-110)
[2020-07-21 08:19] LABS: BASOPHILS % (AUTO) 0.4 % (0.0-2.0); EOSINOPHILS % (AUTO) 2.4 % (1.0-6.0); HEMATOCRIT 36.5 % (36-46); HEMOGLOBIN 12.1 g/dL (12.0-16.0); LYMPHOCYTES # (AUTO) 2.1 K/uL (1.0-4.8); LYMPHOCYTES % (AUTO) 33.4 % (22.0-44.0); MEAN CORPUSCULAR HEMOGLOBIN 29.2 pg (26.0-34.0); MEAN CORPUSCULAR HGB CONC 33.2 G/dL (31.0-37.0); MEAN CORPUSCULAR VOLUME 88 fL (80-100); MONOCYTES # (AUTO) 0.7 K/uL (0.1-1.0); MONOCYTES % (AUTO) 11.2 % (2.0-9.0); NEUTROPHILS # (AUTO) 3.3 K/uL (1.8-7.7); NEUTROPHILS % (AUTO) 52.6 % (40.0-70.0); PLATELET COUNT (AUTO) 244 K/uL (150-450); RED BLOOD CELL COUNT(AUTO) 4.15 MIL/uL (4.00-5.20)
[2020-07-21 08:32] VITALS: BP 129/82
[2020-07-21 08:41] LABS: HEMOGLOBIN A1C 4.7 % (3.8-5.6)
[2020-07-21 09:10] LABS: ALANINE AMINOTRANSFERASE 16 U/L (12-78); ALBUMIN 3.7 g/dL (3.4-5.0); ALKALINE PHOSPHATASE 76 U/L (46-116); ANION GAP 9 mmol/L (8-16); ASPARTATE AMINOTRANSFERASE 16 U/L (15-37); BILIRUBIN,TOTAL 1.8 mg/dL (0.1-1.0); CALCIUM, TOTAL 8.8 mg/dL (8.8-10.5); CARBON DIOXIDE 28 mmol/L (22-29); CHLORIDE 105 mmol/L (98-107); CREATINE KINASE, TOTAL ONLY 127 U/L (26-192); GLOMERULAR FILTR. RATE CALC > 60 mL/min (>60); GLUCOSE,RANDOM 82 mg/dL (70-110); PHOSPHORUS 4.9 mg/dL (2.5-4.9); POTASSIUM 3.4 mmol/L (3.5-5.1); SODIUM SERUM 142 mmol/L (136-145); TOTAL PROTEIN, SERUM 7.4 g/dL (6.4-8.2); UREA NITROGEN, BLOOD 12 mg/dL (7-18)
[2020-07-21 11:57] LABS: GLUCOMETER DEV NAME(LOC) BV3S.; GLUCOSE,POINT OF CARE 96 MG/DL (70-110)
[2020-07-21 18:28] VITALS: BP 100/63
[2020-07-21] MEDS: LORazepam 2 MG TABLET PO PRN (20:01)
[2020-07-21] MEDS: QUEtiapine FUMARATE 300 MG TABLET PO SCH (20:01)
[2020-07-21 21:29] LABS: GLUCOMETER DEV NAME(LOC) BV3S.; GLUCOSE,POINT OF CARE 93 MG/DL (70-110)
[2020-07-22 00:19] VITALS: BP 102/72
[2020-07-22 08:18] VITALS: BP 110/54
[2020-07-22] MEDS: LORazepam 2 MG TABLET PO PRN ×2 (10:33→19:00)
[2020-07-22 16:32] VITALS: BP 120/84
[2020-07-22 16:47] LABS: GLUCOMETER DEV NAME(LOC) BV3S.; GLUCOSE,POINT OF CARE 111 MG/DL (70-110)
[2020-07-22] MEDS: QUEtiapine FUMARATE 300 MG TABLET PO SCH (20:13)
[2020-07-22 20:55] LABS: GLUCOMETER DEV NAME(LOC) BV3S.; GLUCOSE,POINT OF CARE 95 MG/DL (70-110)
[2020-07-23 00:14] VITALS: BP 110/73
[2020-07-23 06:40] LABS: GLUCOMETER DEV NAME(LOC) BV3S.; GLUCOSE,POINT OF CARE 93 MG/DL (70-110)
[2020-07-23 08:21] VITALS: BP 126/76
[2020-07-23] MEDS ORDERED: QUET300T2 PO (08:30)
[2020-07-23 11:54] LABS: GLUCOMETER DEV NAME(LOC) BV3S.; GLUCOSE,POINT OF CARE 116 MG/DL (70-110)
== END 2020-07-23 12:34 | disposition home or self-care (01) | DRG 750 ==
LOC: EMS 11:43 → B3A 19:00
PROVIDERS: ADMIT Psychiatry & Neurology Psychiatry; ATTEND Psychiatry & Neurology Psychiatry
DX: F20.0 Paranoid schizophrenia (principal); D72.829 Elevated white blood cell count, unspecified; E11.9 Type 2 diabetes mellitus without complications; E78.5 Hyperlipidemia, unspecified; F12.10 Cannabis abuse, uncomplicated; Z20.822 Contact with and (suspected) exposure to COVID-19; I10 Essential (primary) hypertension; E66.9 Obesity, unspecified; R45.851 Suicidal ideations; F17.210 Nicotine dependence, cigarettes, uncomplicated; F15.90 Other stimulant use, unspecified, uncomplicated; Z68.32 Body mass index [BMI] 32.0-32.9, adult; Z78.1 Physical restraint status; Z71.6 Tobacco abuse counseling
CPT/HCPCS: 83036; 83735; 84100; 87426; 99285; G0480; J1200; J1630; J2060; J7030